=== PATIENT | female | born 1985 | race Caucasian/White ===

== ENCOUNTER 2021-07-14 22:25 | Emergency (ER) | payer BC, OTHER ==
[~2021-07-14] VITALS: Ht 165 cm; Wt 59.0 kg
[~2021-07-14 22:25] MED LIST: ACHD5005 PO; CEPH500C PO; CITA40TA19 PO; FAMO20TA5 PO; INSU100C SQ; INSU100V16 SC; INSU100V6 SQ; NPH,100I3 SQ; OMEP-10 PO; TPR25T PO; [UNRECOGNIZED DRUG - CODE] GT; [UNRECOGNIZED DRUG - OTHER] IV
[2021-07-14] MEDS ORDERED: NS IV 1000 ML 1,000 ML IV STA (22:44)
[2021-07-14] MEDS ORDERED: LORazepam INJ 2 MG/ML (ATIVAN) VIAL IVP STA (22:44)
[2021-07-14 22:48] LABS: BASOPHILS # (AUTO) 0.1 10^3/uL (0.0-0.1); BASOPHILS % (AUTO) 1 % (0-10); EOSINOPHILS # (AUTO) 0.2 10^3/uL (0.0-0.3); EOSINOPHILS % (AUTO) 3 % (0-10); HEMATOCRIT 46 % (35-52); HEMOGLOBIN 16.1 g/dL (11.5-16.0); LYMPHOCYTES # (AUTO) 2.4 X 10^3 (1.0-4.0); LYMPHOCYTES % (AUTO) 30 % (12-44); MEAN CORPUSCULAR HEMOGLOBIN 32 pg (25-34); MEAN CORPUSCULAR HGB CONC 35 g/dL (32-36); MEAN CORPUSCULAR VOLUME 91 fL (80-99); MEAN PLATELET VOLUME 9.6 fL (9.0-12.2); MONOCYTES # (AUTO) 0.5 X 10^3 (0.0-1.0); MONOCYTES % (AUTO) 6 % (0-12); NEUTROPHILS % (AUTO) 61 % (42-75); PLATELET COUNT 387 10^3/uL (130-400); WHITE BLOOD COUNT 8.2 10^3/uL (4.3-11.0)
[2021-07-14 22:53] LABS: INR 1.1 (0.8-1.4); PROTHROMBIN TIME PATIENT 14.1 SEC (12.2-14.7)
--- NOTE | 2021-07-14 22:54 | ED General ---
General Chief Complaint: Chest Pain Stated Complaint: CHEST PAIN/HIGH BLOOD PRESSURE Source of Information: Patient History of Present Illness Date Seen by Provider: Jul 14, 2021 Time Seen by Provider: 22:25 Initial Comments 36 yo female presenting with complaint of leaving [facility] ED and coming here because she was "not feeling right". She states she has felt like she was having swelling in her legs since this afternoon. she also feels that she has chest tightness and discomfort going into her right arm. She feels that her fingernails and toenails were "turning colors" different than her fingers and toes. She follows with providers in [place], [place] and went to the ED at the [facility] but felt they were not taking her seriously so she left and came here to a stand alone Emergency Department with no records on her as she has not been here. She is vague about her symptoms and just keeps saying that she does not feel right. She denies fever, chills, pain with urination. She states her sugars are doing "really good" but when asked about Hgb A1c she states it was 11 or 12 when they checked it 3-4 months ago. When asked about getting a urinalysis she said she already checked for ketones and it was negative so she did not feel she needed that done. I told her that if she wanted evaluated here at the stand alone Emergency Department to see if anything was going on or if she needs to go to a Hospital somewhere she needs to start all over on the testing as we do not have any records on her. Timing/Duration: 12 Hours Associated Systoms: Chest Pain (tightness in upper chest radiating to right arm); No Cough, No Diaphoresis, No Fever/Chills, No Headaches; Malaise, Nausea/Vomiting (nausea but no emesis); No Rash, No Seizure, No Shortness of Air, No Syncope; Weakness (generalized) Allergies and Home Medications Allergies Coded Allergies: No Known Drug Allergies (Unverified , 07/14/21) Patient Home Medication List Home Medication List Reviewed: Yes Furosemide (Furosemide) 20 Mg Tablet, 20 MG PO DAILY Prescribed by: KERLINE SIMS on 07/15/21148 Potassium Chloride (Potassium Chloride) 20 Meq Tablet.er, 20 MEQ PO BID Prescribed by: KERLINE SIMS on 07/15/21148 Review of Systems Review of Systems Constitutional: see HPI; No diaphoresis EENTM: no symptoms reported Respiratory: see HPI Cardiovascular: see HPI Gastrointestinal: see HPI Genitourinary: No dysuria Musculoskeletal: other (pain in right arm and feels like legs are tight and swollen) Skin: see HPI, other (multiple scabs and sores on extremities as though she has been picking at her skin) Psychiatric/Neurological: Anxiety Hematologic/Lymphatic: Denies Blood Clots Past Idiesin-Ikgbpz-Lmouor Hx Patient Social History Tobacco Use?: Yes Tobacco type used: Cigarettes Smoking Status: Current Someday Smoker Substance use?: No Alcohol Use?: No Pt feels they are or have been: No Immunizations Up To Date Influenza Vaccine Up-to-Date: No; Not Current Past Medical History Surgery/Hospitalization HX: Insulin Dependent DM Poorly controlled, Anxiety, Depression Physical Exam Vital Signs Vital Signs - First Documented 07/14/21 22:43 Pulse 119 Resp 22 B/P (MAP) 155/101 (119) Pulse Ox 98 O2 Delivery Room Air Capillary Refill : Height, Weight, BMI Height: '" Weight: lbs. oz. kg; BMI Method: General Appearance: Anxious HEENT: PERRL/EOMI, Pharynx Normal Neck: Full Range of Motion, Normal Inspection, Non Tender, Supple Respiratory: Lungs Clear, Normal Breath Sounds, No Accessory Muscle Use, No Respiratory Distress, Other (hyperventilating) Cardiovascular: Normal Peripheral Pulses, Tachycardia Gastrointestinal: Normal Bowel Sounds, No Pulsatile Mass, Non Tender, Soft Rectal: Deferred Extremity: Normal Range of Motion, No Calf Tenderness, No Pedal Edema, Slow Capillary Refill Neurologic/Psychiatric: Alert, Oriented x3, decal transferrer II-XII Norm as Tested, Other (anxious) Skin: Warm/Dry Progress/Results/Core Measures Suspected Sepsis SIRS Temperature: Pulse: Respiratory Rate: Laboratory Tests 07/14/21 22:35: White Blood Count 8.2 Blood Pressure / Mean: Laboratory Tests 07/14/21 22:35: Creatinine 0.53L, INR Comment 1.1, Platelet Count 387, Total Bilirubin 0.6 Results/Orders Lab Results Laboratory Tests Test 07/14/21 22:35 07/14/21 22:45 07/14/21 23:11 07/14/21 23:30 Range/Units White Blood Count 8.2 4.3-11.0 10^3/uL Red Blood Count 5.09 3.80-5.11 10^6/uL Hemoglobin 16.1 H 11.5-16.0 g/dL Hematocrit 46 35-52 % Mean Corpuscular Volume 91 80-99 fL Mean Corpuscular Hemoglobin 32 25-34 pg Mean Corpuscular Hemoglobin Concent 35 32-36 g/dL Red Cell Distribution Width 12.8 10.0-14.5 % Platelet Count 387 130-400 10^3/uL Mean Platelet Volume 9.6 9.0-12.2 fL Immature Granulocyte % (Auto) 0 % Neutrophils (%) (Auto) 61 42-75 % Lymphocytes (%) (Auto) 30 12-44 % Monocytes (%) (Auto) 6 0-12 % Eosinophils (%) (Auto) 3 0-10 % Basophils (%) (Auto) 1 0-10 % Neutrophils # (Auto) 5.0 1.8-7.8 X 10^3 Lymphocytes # (Auto) 2.4 1.0-4.0 X 10^3 Monocytes # (Auto) 0.5 0.0-1.0 X 10^3 Eosinophils # (Auto) 0.2 0.0-0.3 10^3/uL Basophils # (Auto) 0.1 0.0-0.1 10^3/uL Immature Granulocyte # (Auto) 0.0 0.0-0.1 10^3/uL Prothrombin Time 14.1 12.2-14.7 SEC INR Comment 1.1 0.8-1.4 Activated Partial Thromboplast Time 33 24-35 SEC D-Dimer 0.84 H 0.00-0.49 UG/ML Sodium Level 136 135-145 MMOL/L Potassium Level 3.5 L 3.6-5.0 MMOL/L Chloride Level 102 98-107 MMOL/L Carbon Dioxide Level 23 21-32 MMOL/L Anion Gap 11 5-14 MMOL/L Blood Urea Nitrogen 8 7-18 MG/DL Creatinine 0.53 L 0.60-1.30 MG/DL Estimat Glomerular Filtration Rate 124 BUN/Creatinine Ratio 15 Glucose Level 103 70-105 MG/DL Calcium Level 9.6 8.5-10.1 MG/DL Corrected Calcium 9.2 8.5-10.1 MG/DL Magnesium Level 2.0 1.6-2.4 MG/DL Total Bilirubin 0.6 0.1-1.0 MG/DL Aspartate Amino Transf (AST/SGOT) 119 H 5-34 U/L Alanine Aminotransferase (ALT/SGPT) 111 H 0-55 U/L Alkaline Phosphatase 235 H 40-136 U/L Myoglobin 46.3 10.0-92.0 NG/ML Troponin I < 0.30 <0.30 NG/ML Pro-B-Type Natriuretic Peptide 1667.0 H <75.0 PG/ML Total Protein 7.0 6.4-8.2 GM/DL Albumin 4.5 3.2-4.5 GM/DL Lipase 11 8-78 U/L Serum Test, Qualitative NEGATIVE NEGATIVE Serum Alcohol < 10 <10 MG/DL Urine Color YELLOW Urine Clarity CLEAR Urine pH 8.0 5-9 Urine Specific [place] 1.010 L 1.016-1.022 Urine Protein NEGATIVE NEGATIVE Urine Glucose (UA) NEGATIVE NEGATIVE Urine Ketones NEGATIVE NEGATIVE Urine Nitrite NEGATIVE NEGATIVE Urine Bilirubin NEGATIVE NEGATIVE Urine Urobilinogen 1.0 < = 1.0 MG/DL Urine Leukocyte Esterase NEGATIVE NEGATIVE Urine RBC (Auto) NEGATIVE NEGATIVE Urine RBC 0-2 /HPF Urine WBC NONE /HPF Urine Squamous Epithelial Cells NONE /HPF Urine Crystals NONE /LPF Urine Bacteria TRACE /HPF Urine Casts NONE /LPF Urine Mucus LARGE H /LPF Urine Culture Indicated NO Urine Opiates Screen NEGATIVE NEGATIVE Urine Oxycodone Screen NEGATIVE NEGATIVE Urine Methadone Screen NEGATIVE NEGATIVE Urine Propoxyphene Screen NEGATIVE NEGATIVE Urine Barbiturates Screen NEGATIVE NEGATIVE Ur Tricyclic Antidepressants Screen NEGATIVE NEGATIVE Urine Phencyclidine Screen NEGATIVE NEGATIVE Urine Amphetamines Screen POSITIVE H NEGATIVE Urine Methamphetamines Screen NEGATIVE NEGATIVE Urine Benzodiazepines Screen NEGATIVE NEGATIVE Urine Cocaine Screen NEGATIVE NEGATIVE Urine Cannabinoids Screen POSITIVE H NEGATIVE Glucometer 96 70-110 MG/DL Blood Gas Puncture Site RIGHT RADIAL Blood Gas Patient Temperature 36.6 Arterial Blood pH 7.41 7.37-7.43 Arterial Blood Partial Pressure CO2 39 35-45 MMHG Arterial Blood Partial Pressure O2 22 *L 79-93 MMHG Arterial Blood HCO3 25 23-27 MMOL/L Arterial Blood Total CO2 25.9 21.0-31.0 MMOL/L Arterial Blood Oxygen Saturation 38 L 94-100 % Arterial Blood Base Excess 0.1 -2.5-2.5 MMOL/L Titi Test POSITIVE Blood Gas Ventilator Setting NO Blood Gas Inspired Oxygen ROOM AIR My Orders Orders - KERLINE SIMS MD Cbc With Automated Diff (07/14/21 22:39) Magnesium (07/14/21 22:39) Chest 1 View Ap/Pa Only (07/14/21:39) Ekg Tracing (07/14/21 22:39) Comprehensive Metabolic Panel (07/14/21 22:39) Myoglobin Serum (07/14/21 22:39) Protime With Inr (07/14/21:39) Partial Thromboplastin Time (07/14/21:39) O2 (07/14/21:39) Monitor-Rhythm Ecg Trace Only (07/14/21 22:39) Ed Iv/Invasive Line Start (07/14/21:39) Lipase (07/14/21:) Troponin I Fs (07/14/21 22:39) Probnp Fs (07/14/21 22:39) Fibrin Degradation Products (07/14/21 22:39) Ua Culture If Indicated (07/14/21 22:39) Drug Screen Stat (Urine) (07/14/21 22:39) Alcohol (07/14/21 22:39) Accucheck Stat ONCE (07/14/21 22:39) Hcg,Qualitative Serum (07/14/21:39) Ns Iv 1000 Ml (Sodium Chloride 0.9%) (07/14/21 22:44) Lorazepam Injection (Ativan Injection) (07/14/21 22:44) Arterial Blood Gas (07/14/21 23:37) Ct Angio Chest W (07/15/21 00:19) Iohexol Injection (Omnipaque 350 Mg/Ml 1 (07/15/21 00:30) Received Contrast (Hold Metformin- Contr (07/15/21 00:30) Sodium Chloride Flush (Catheter Flush Sy (07/15/21 00:30) Ns (Ivpb) (Sodium Chloride 0.9% Ivpb Bag (07/15/21 00:30) Potassium Chloride (Tablet) (K Dur Table (07/15/21 02:07) Rx-Lorazepam (Rx-Ativan) (07/15/21 02:15) Medications Given in ED Current Medications Medications Dose Ordered Sig/Sabiha Route Start Time Stop Time Status Last Admin Dose Admin Iohexol 100 ml ONCE ONCE IV 07/15/21 00:30 07/15/21 00:32 DC 07/15/21 00:47 100 ML Sodium Chloride 10 ml NEEDED PRN IV 07/15/21 00:30 07/15/21 02:15 10 ML Sodium Chloride 100 ml ONCE ONCE IV 07/15/21 00:30 07/15/21 00:32 DC 07/15/21 00:47 100 ML Vital Signs/I&O 07/14/21 07/14/21 07/14/21 07/14/21 22:43 22:59 23:01 23:57 Pulse 119 113 108 Resp 22 20 B/P (MAP) 155/101 (119) 138/100 123/99 Pulse Ox 98 100 100 O2 Delivery Room Air Room Air Room Air 07/15/21 07/15/21 00:33 01:15 Pulse 117 108 B/P (MAP) 143/98 124/86 Capillary Refill : Progress Note #1: Progress Note Electrocardiogram shows sinus tachycardia with no acute ST elevation. Obtain labs and urinalysis. Add on urine drug screen to look for substances of abuse that might be contributing to her anxiety and bouncing between facilities when all of her care has been at [place]. Evaluate for DKA with her tachycardia and vague complaint of "not feeling right". Order IVF of 1 L NS for hydration, Ativan 1 mg IV for anxiety with her tachycardia and hyperventilating. CXR for her complaint of chest tightness although her oxygen saturation is 100% on RA. Differential diagnosis includes anxiety, DKA, substance abuse, peripheral neuropathy, pulmonary embolism, myocardial infarction, heart failure, electrolyte imbalance, renal failure, hepatic failure Progress Note #2: Progress Note Labs appear stable without elevation of WBC. count. UA not showing infection. UDS showing only THC and Amphetamines. Chemistry shows mild elevation of LFTs to 110s with normal T Bili. Troponin <0.3 after having symptoms since around 3 pm. proBNP elevated to 1677 but no old one for comparison. CXR shows findings for atypical infection or possible interstitial edema. No pleural effusion or cardiomegaly. D Dimer was slightly elevated to 0.89. Pt has improved blood pressure but does have continued tachycardia despite IVF 1 L NS bolus for hydration and Lorazepam 1 mg IV for anxiety. Will try to get records from [facility] for comparison. Add on CT angiogram of chest to check for PE or acute abnormality of chest to cause her chest tightness Progress Note #3: Progress Note Records from [facility] reviewed and showed findings consistent with CXR and CT scan [facility]. No BNP or Troponin at [facility]. Records from [facility] state she had work up in May for Chest pains and similar presentation that was reportedly negative but those records were not sent. CT angiogram from [facility] shows interstitial edema with trace small bilateral pleural effusions. No PE. small nonspecific groundglass nodule in RUL 6 to 7 mm. Will reassure pt that she does not have signs of heart attack, pneumonia, kidney or liver failure. For the interstitial edema on Chest xray and CT scan will encourage follow up with pcp/cardiology for echocardiogram. For her complaint of cramping and leg pain have her follow up for perfusion or vascular scans to see how well she is perfusing her legs since a combination of peripheral vascular disease with her diabetic neuropathy could certainly cause her to have some leg pains. She does not have evidence of ischemic tissue for a completely blocked artery to her LE. Branch Director that pt could take diuretic with lasix to try and help with the mild edema in lungs and take potassium supplement with this to help prevent hypokalemia. Advised pt that Echocardiogram to check her heart function would be helpful but with her being hemodynamically stable she would not have to be admitted to the hospital to get this done emergently. She also would benefit from perfusion studies of her legs to see if she has need of vascular procedure or stenting to improve blood flow. Will start potassium supplement in case that is contributing to her leg pain and spasms. So she can rest when she gets home have her wait until morning to get Lasix started so she is not up rest of the morning having to pee. Send with Take home pack of Lorazepam 0.5 mg pills, 1 every 8 hours as needed for anxiety and stress. Encouraged to call Dr. Galindo Friday morning about arranging follow up and possible order for other testing. ECG Initial ECG Impression Date: Jul 14, 2021 Initial ECG Impression Time: 22:32 Initial ECG Rate: 113 Initial ECG Rhythm: S.Tach Initial ECG Comparisson: No Previous ECG Available Comment Sinus tachycardia with a heart rate of 113 bpm. NV interval 149 ms. Borderline prolonged QT interval of 359 ms with a QTc interval [address] elevation. No prior tracing available for comparison. Probable left ventricular hypertrophy. Diagnostic Imaging Diagonstic Imaging: Xray Plain Films/CT/US/NM/MRI: chest Comments NAME: AAMIR GONG [facility] REC#: [id number] PT STATUS: REG ER : 1985 PHYSICIAN: KERLINE SIMS MD ADMIT DATE: 07/14/21/ER FS Draft Date of Exam:07/14/21 CHEST 1 VIEW AP/PA ONLY INDICATION: Dyspnea Portable upright AP view of the chest is obtained. There is no previous study for comparison. There is mild generalized cardiomegaly with pulmonary venous congestion. Prominent interstitial markings are seen throughout the lungs. There is no pneumothorax, consolidation or significant pleural fluid. IMPRESSION: Diffuse interstitial markings may reflect interstitial pulmonary edema. Interstitial pneumonitis could have this appearance as well. Clinical correlation is recommended. If older studies are available, comparison would be of use. Dictated on workstation # [id number] Dict: 07/14/21 2324 Trans: 07/14/21 2328 [facility] [id number] Interpreted by: LATANYA ADAMS MD Electronically signed by: Reviewed: Reviewed by Me Diagonstic Imaging: CT (angiogram) Plain Films/CT/US/NM/MRI: chest Comments Findings suspicious for interstitial edema with trace small bilateral pleural effusions. No pulmonary emboli. Small nonspecific groundglass nodule in the right upper lobe measuring 6 to 7 mm. Read by radiologist Dr. Travon Garcia MD at 0059 and faxed at 0101 Reviewed: Reviewed [facility] Study, Reviewed by Me Departure Impression Primary Impression: Tightness in chest Additional Impressions: Interstitial edema Qualified Codes: R60.9 - Edema, unspecified Leg pain, left Leg pain, right Disposition: 01 HOME, SELF-CARE Condition: Stable Departure-Patient Inst. Decision time for Depature: 01:40 Referrals: NO,LOCAL PHYSICIAN (PCP/Family) Primary Care Physician Patient Instructions: Chest Pain, Adult ED, Dependent Edema (DC) Add. Discharge Instructions: The tests tonight were not showing signs of a heart attack, pneumonia, blood clots in your lungs or your kidneys or liver shutting down. You could follow up with clinic about your edema in the lungs and they would need to do an Echocardiogram (Ultrasound of your heart) You could also have the clinic see about ordering tests to look at your perfusion (how well you are getting blood flow to your legs) and see if that is part of your pain in your legs along with your chronic Neuropathy from your Diabetes. The water pill and potassium pill could help with tightness in chest from small amount of fluid showing up in your lungs. This should also help with your blood pressure and if the leg pain is from your potassium then taking the extra potassium pills will help with the leg pain too. All discharge instructions reviewed with patient and/or family. Voiced understanding. Scripts Potassium Chloride (Potassium Chloride) 20 Meq Tablet.er 20 MEQ PO BID for Low Potassium for 5 Days, #10 TAB 0 Refills Prov: KERLINE SIMS MD 07/15/21 Furosemide (Furosemide) 20 Mg Tablet 20 MG PO DAILY for interstitial edema for 5 Days, #5 TAB 0 Refills Prov: KERLINE SIMS MD 07/15/21 KERLINE SIMS MD Jul 14, 2021 22:54
[2021-07-14 23:00] LABS: BILIRUBIN,URINE NEGATIVE (NEGATIVE); CLARITY,URINE CLEAR; COLOR,URINE YELLOW; GLUCOSE, URINE (UA) NEGATIVE (NEGATIVE); KETONES,URINE NEGATIVE (NEGATIVE); LEUKOCYTE ESTERASE ,URINE NEGATIVE (NEGATIVE); NITRITE,URINE NEGATIVE (NEGATIVE); PROTEIN,URINE NEGATIVE (NEGATIVE)
[2021-07-14 23:08] LABS: ALANINE AMINOTRANSFERASE 111 U/L (0-55); ALBUMIN 4.5 GM/DL (3.2-4.5); ALKALINE PHOSPHATASE 235 U/L (40-136); BILIRUBIN,TOTAL 0.6 MG/DL (0.1-1.0); BUN/CREATININE RATIO 15; CALCIUM 9.6 MG/DL (8.5-10.1); CARBON DIOXIDE 23 MMOL/L (21-32); CHLORIDE 102 MMOL/L (98-107); CREATININE SERUM 0.53 MG/DL (0.60-1.30); GFR ESTIMATED 124; GLUCOSE 103 MG/DL (70-105); POTASSIUM 3.5 MMOL/L (3.6-5.0); SODIUM 136 MMOL/L (135-145)
[2021-07-14 23:09] LABS: LIPASE 11 U/L (8-78)
[2021-07-14 23:11] LABS: BACTERIA,URINE TRACE /HPF; RBC,URINE 0-2 /HPF
[2021-07-14 23:29] LABS: AMPHETAMINE SCREEN, URINE POSITIVE (NEGATIVE); BARBITURATE SCREEN URINE NEGATIVE (NEGATIVE); BENZODIAZEPINES SCREEN URINE NEGATIVE (NEGATIVE); CANNABINOID SCREEN, URINE POSITIVE (NEGATIVE); COCAINE SCREEN URINE NEGATIVE (NEGATIVE); METHADONE STAT NEGATIVE (NEGATIVE); METHAMPHETAMINE SCREEN URINE S NEGATIVE (NEGATIVE); OPIATE SCREEN URINE NEGATIVE (NEGATIVE); OXYCODONE STAT NEGATIVE (NEGATIVE); PROPOXYPHENE STAT NEGATIVE (NEGATIVE); TRICYCLIC ANTIDEPRESSANTS SCRE NEGATIVE (NEGATIVE)
--- NOTE | 2021-07-14 23:29 | Diagnostic Imaging Report ---
INDICATION: Dyspnea Portable upright AP view of the chest is obtained. There is no previous study for comparison. There is mild generalized cardiomegaly with pulmonary venous congestion. Prominent interstitial markings are seen throughout the lungs. There is no pneumothorax, consolidation or significant pleural fluid. IMPRESSION: Diffuse interstitial markings may reflect interstitial pulmonary edema. Interstitial pneumonitis could have this appearance as well. Clinical correlation is recommended. If older studies are available, comparison would be of use. Dictated by: Dictated on workstation # [id number]
[2021-07-14 23:40] LABS: ABG BASE EXCESS 0.1 MMOL/L (-2.5-2.5); ABG OXYGEN SATURATION 38 % (94-100); ABG PCO2 39 MMHG (35-45); ABG PH 7.41 (7.37-7.43); ABG TCO2 25.9 MMOL/L (21.0-31.0); ALLENS TEST POSITIVE; INSPIRED O2 ROOM AIR; VENTILATOR NO
[2021-07-14 23:41] LABS: PATIENT TEMP 36.6
[2021-07-14 23:42] LABS: ABG PO2 22 MMHG (79-93)
[2021-07-15 00:29] LABS: FIBRIN DEGRADATION PRODUCTS 0.84 UG/ML (0.00-0.49)
[2021-07-15] MEDS ORDERED: IOHEXOL 350 MG/ML 100 ML (OMNIPAQUE 350) VIAL IV ONE (00:30)
[2021-07-15] MEDS ORDERED: NS 100 ML (IVPB) BAG IV ONE (00:30)
[2021-07-15] MEDS ORDERED: HOLD METFORMIN - RECEIVED CONTRAST 20 ML VIAL IV SCH (00:30)
[2021-07-15] MEDS: CATHETER FLUSH 10 ML SYR IV PRN ×2 (00:47→02:15)
[2021-07-15] MEDS ORDERED: FURO20TA4 PO (01:49)
[2021-07-15] MEDS ORDERED: POTA-51 PO (01:49)
[2021-07-15 02:07] VITALS: BP 134/98
[2021-07-15] MEDS ORDERED: KCL 20 MEQ TAB (K-DUR) PO STA (02:07)
[2021-07-15] MEDS ORDERED: RX-LORAZEPAM (ATIVAN) 0.5 MG TAB PPK#4 PO PRN (02:15)
--- NOTE | 2021-07-15 06:14 | Diagnostic Imaging Report ---
PROCEDURE: CT angiography of the chest with contrast. TECHNIQUE: Multiple contiguous axial images were obtained through the chest after uneventful bolus administration of intravenous contrast. 3D reconstructed CTA MIP acquisitions were also performed. Auto Exposure Controls were utilized during the CT exam to meet ALARA standards for radiation dose reduction. Indication: Chest tightness and dyspnea. Comparison: Chest x-ray 07/14/2021. Discussion: No pulmonary embolus identified. The thoracic aorta is normal in caliber and configuration. Normal heart size. No pericardial fluid. There are small bilateral pleural effusions present. There is mild interstitial thickening diffusely with some groundglass infiltrates. The findings favor the appearance of mild edema. No focal consolidation. The upper abdomen is unremarkable. No osseous abnormality identified. Shotty-appearing mediastinal adenopathy. Impression: 1. Small bilateral pleural effusions with bilateral mixed interstitial and alveolar infiltrates suggesting mild failure. 2. No pulmonary embolus identified. 3. Agree with preliminary report. Dictated by: Dictated on workstation # [id number]
== END 2021-07-15 02:07 | disposition home or self-care (01) ==
LOC: ER FS 22:30
DX: R07.89 Other chest pain (principal); R60.9 Edema, unspecified; M79.605 Pain in left leg; M79.604 Pain in right leg; F17.210 Nicotine dependence, cigarettes, uncomplicated
CPT/HCPCS: 36415; 71045; 71275; 80053; 80306; 81000; 82805; 82947; 83690; 83735; 83874; 83880; 84484; 84703; 85025; 85379; 85610; 85730; 93005; 93041; 99285; G0480; 80320; Q9967

== ENCOUNTER 2022-02-12 08:32 | Observation (INO) | payer BC ==
[~2022-02-12] VITALS: Ht 165.1 cm; Wt 68.5 kg
[~2022-02-12 08:32] MED LIST changes: +FURO20TA4 PO; +POTA-51 PO
[2022-02-12 08:58] LABS: HEMOGLOBIN 15.6 g/dL (11.5-16.0); LYMPHOCYTES # (AUTO) 0.7 10^3/uL (1.0-4.0); LYMPHOCYTES % (AUTO) 4 % (12-44); MEAN CORPUSCULAR HEMOGLOBIN 31 pg (25-34); MONOCYTES # (AUTO) 0.8 10^3/uL (0.0-1.0); MONOCYTES % (AUTO) 4 % (0-12)
[2022-02-12 08:59] LABS: BASOPHILS # (AUTO) 0.1 10^3/uL (0.0-0.1); BASOPHILS % (AUTO) 0 % (0-10); EOSINOPHILS % (AUTO) 0 % (0-10); HEMATOCRIT 46 % (35-52); MEAN CORPUSCULAR HGB CONC 34 g/dL (32-36); MEAN CORPUSCULAR VOLUME 92 fL (80-99); MEAN PLATELET VOLUME 10.1 fL (9.0-12.2); NEUTROPHILS # (AUTO) 17.4 10^3/uL (1.8-7.8); NEUTROPHILS % (AUTO) 91 % (42-75); PLATELET COUNT 379 10^3/uL (130-400); WHITE BLOOD COUNT 19.2 10^3/uL (4.3-11.0)
[2022-02-12] MEDS ORDERED: NS IV 1000 ML 1,000 ML IV SCH ×3 (09:00→13:45)
[2022-02-12] MEDS ORDERED: ONDANSETRON 4 MG/2 ML (SDV) Z0FRAN IVP ONE (09:00)
[2022-02-12 09:15] LABS: BAND NEUTROPHILS 4 %; BASOPHILS % (MANUAL) 0 %; EOSINOPHILS % (MANUAL) 1 %; LYMPHOCYTES % (MANUAL) 6 %; MONOCYTES % (MANUAL) 4 %; NEUTROPHILS % (MANUAL) 85 %; RBC MORPH NORMAL
[2022-02-12 09:16] LABS: CHLORIDE 92 MMOL/L (98-107); POTASSIUM 3.9 MMOL/L (3.6-5.0); SODIUM 135 MMOL/L (135-145)
[2022-02-12 09:17] LABS: CALCIUM 10.5 MG/DL (8.5-10.1)
[2022-02-12 09:18] LABS: TOTAL PROTEIN 8.9 GM/DL (6.4-8.2)
[2022-02-12 09:19] LABS: CARBON DIOXIDE 16 MMOL/L (21-32)
[2022-02-12 09:20] LABS: BILIRUBIN,TOTAL 1.1 MG/DL (0.1-1.0)
[2022-02-12 09:21] LABS: ALKALINE PHOSPHATASE 104 U/L (40-136)
[2022-02-12 09:22] LABS: CREATININE SERUM 1.71 MG/DL (0.60-1.30); GFR ESTIMATED 40
[2022-02-12 09:23] LABS: BUN/CREATININE RATIO 18
[2022-02-12 09:24] LABS: ALANINE AMINOTRANSFERASE 26 U/L (0-55)
[2022-02-12 09:32] LABS: GLUCOSE 774 MG/DL (70-105)
[2022-02-12] MEDS ORDERED: inSUlin (REGULAR) HUMAN 1 UNIT/0.01 ML (CHARGE PER UNIT) IV ONE (09:45)
[2022-02-12 10:39] LABS: BILIRUBIN,URINE NEGATIVE (NEGATIVE); CLARITY,URINE CLEAR; COLOR,URINE YELLOW; GLUCOSE, URINE (UA) 3+ (NEGATIVE); KETONES,URINE 3+ (NEGATIVE); LEUKOCYTE ESTERASE ,URINE NEGATIVE (NEGATIVE); NITRITE,URINE NEGATIVE (NEGATIVE); PROTEIN,URINE NEGATIVE (NEGATIVE)
[2022-02-12 10:58] LABS: BACTERIA,URINE NEGATIVE /HPF
--- NOTE | 2022-02-12 12:29 | ED General ---
General Chief Complaint: Glucose Problems Stated Complaint: HIGH BLOOD SUGAR/VOMITING Nursing Triage Note: PT TO RM 9 PER W/C PT STATES HAS BS OVER 800 HAS BEEN VOMITING SINCE LAST PM. STATES BS OVER 800 THIS AM. PT STATES WAS SICK W COVID IN JAN. PT STATES HAS INSULIN PUMP IN PLACE THAT GIVES PT 1U Q HR. STATES THAT HE HAD GIVEN HER 15U INSULIN AT 0700 THIS AM SQ IN ARM. Source of Information: Patient Exam Limitations: No Limitations History of Present Illness Date Seen by Provider: Feb 12, 2022 Time Seen by Provider: 08:58 Initial Comments This 36-year-old woman with type 1 diabetes since age 8 presents to the emergency room with hyperglycemia, vomiting, and generalized ill feeling. She has been using an insulin pump for about the past 2 weeks. Prior to the insulin pump, she was frequently experiencing high blood sugars up to the 500s. Over the last week she has actually been fairly well controlled with most blood sugars being under 200 and having a few low blood sugars in the 60s over the past week. She noticed a problem with the nausea and high blood sugars after changing her insulin pump site yesterday. Her gave her a bolus of 15 units subcu by injection rather than using her pump this morning before coming to the emergency room. She still has her pump on running at a basal rate of 1 unit/h. She sees an endocrinology team at [facility]. PRIMITIVO Gutierrez is who she claims as her primary provider for endocrinology. She also sees Dr. Brett Alva in the cardiology clinic at [facility]. She reports having an idiopathic heart failure. Her reports her last ejection fraction a couple months ago was in the 40s. Her ejection fractions had been significantly lower prior to that. Patient also had COVID-19 in late December of this year and seemed to recover well. She does not have a local primary care provider. Accu-Chek is too high to read during initial assessment. She does take diuretics for her heart failure. Allergies and Home Medications Allergies Coded Allergies: gabapentin (Verified Allergy, Unknown, Hives, 02/12/22) morphine (Unverified Adverse Reaction, Mild, NIGHTMARES, 07/16/21) Patient Home Medication List Home Medication List Reviewed: Yes ALPRAZolam (ALPRAZolam) 0.25 Mg Tablet, 0.125 MG PO DAILY PRN for ANXIETY, (Reported) Entered as Reported by: PAULO DOVE on 02/12/221543 Last Action: Reviewed Atorvastatin Calcium (Atorvastatin Calcium) 40 Mg Tablet, 40 MG PO 1800, (Repor valarie) Entered as Reported by: PAULO DOVE on 02/12/221543 Last Action: Reviewed Bumetanide (Bumetanide) 2 Mg Tablet, 2 MG PO 1800, (Reported) Entered as Reported by: PAULO DOVE on 02/12/221543 Last Action: Reviewed Cetirizine HCl (Cetirizine HCl) 10 Mg Tablet, 10 MG PO DAILY PRN for ALLERGY SYMPTOMS, (Reported) Entered as Reported by: PAULO DOVE on 02/12/221543 Last Action: Reviewed Ibuprofen (Ibuprofen) 200 Mg Tablet, 600 MG PO Q8H PRN for PAIN-MILD (1-4), (Reported) Entered as Reported by: PAULO DOVE on 02/12/221543 Last Action: Reviewed Insulin Lispro (Insulin Lispro) 100 Unit/Ml Vial, UNITS SC UD, (Reported) Entered as Reported by: PAULO DOVE on 02/12/221543 Last Action: Reviewed Metoprolol Succinate (Metoprolol Succinate) 25 Mg Tab.er.24h, 12.5 MG PO 1800, (Reported) Entered as Reported by: PAULO DOVE on 02/12/221543 Last Action: Reviewed Pregabalin (Pregabalin) 50 Mg Capsule, 50 MG PO TID, (Reported) Entered as Reported by: PAULO DOVE on 02/12/221543 Last Action: Reviewed Spironolactone (Spironolactone) 25 Mg Tablet, 25 MG PO 1800, (Reported) Entered as Reported by: PAULO DOVE on 02/12/221543 Last Action: Reviewed Discontinued Medications Cephalexin Monohydrate (Cephalexin) 500 Mg Capsule, 1 TAB PO BID, (Reported) Discontinued Reason: No Longer Taking Entered as Reported by: LEO NEELY on 11/16/12 0806 Last Action: Discontinued Furosemide (Furosemide) 20 Mg Tablet, 20 MG PO DAILY Discontinued Reason: No Longer Taking Prescribed by: KERLINE SIMS on 07/15/21 0149 Last Action: Discontinued Hydrocodone Bit/Acetaminophen (Lorcet 5/325 Mg) 1 Tab Tablet, 1-2 TAB PO q 4-6 hrs PRN Discontinued Reason: No Longer Taking Prescribed by: SUSSY FUNK on 11/17/12 1041 Last Action: Discontinued Insulin Aspart (Novolog (Per Unit)) 1 Unit/0.01 Ml [place], UNIT SC AC, (Reported) Discontinued Reason: No Longer Taking Entered as Reported by: LEO RAYA on 10/05/12 0801 Last Action: Discontinued Nph, Human Insulin Isophane (Novolin [place]) 300 Unit/3 Ml Insuln.pen, 19 UNIT SQ ONCE, (Reported) Discontinued Reason: No Longer Taking Entered as Reported by: LEO RAYA on 10/05/12 08 Last Action: Discontinued Nph, Human Insulin Isophane (Novolin N [place]) 300 Unit/3 Ml Insuln.pen, 22 UNIT SQ HS, (Reported) Discontinued Reason: No Longer Taking Entered as Reported by: LEO RAYA on 10/05/12 08 Last Action: Discontinued Omeprazole (Prilosec 20 Mg) 20 Mg Capsule.dr, 20 MG PO DAILY Discontinued Reason: No Longer Taking Prescribed by: SUSSY FUNK on 10/05/12 1115 Last Action: Discontinued Potassium Chloride (Potassium Chloride) 20 Meq Tablet.er, 20 MEQ PO BID Discontinued Reason: No Longer Taking Prescribed by: KERLINE SIMS on 07/15/21 0149 Last Action: Discontinued Sodium Chloride (Ns Iv 1000 Ml) 1,000 Ml Soln, 1,000 ML IV ONCE, (Reported) Discontinued Reason: No Longer Taking Entered as Reported by: LEO RAYA on 11/17/12 0847 Last Action: Discontinued Review of Systems Review of Systems Constitutional: see HPI EENTM: no symptoms reported Respiratory: short of breath (Chronic) Cardiovascular: no symptoms reported Gastrointestinal: see HPI Genitourinary: frequency : No Musculoskeletal: no symptoms reported Skin: no symptoms reported Psychiatric/Neurological: No Symptoms Reported Hematologic/Lymphatic: No Symptoms Reported Past Higakml-Jahbtb-Njwezh Hx Patient Social History Tobacco Use?: Yes Tobacco type used: Cigarettes Smoking Status: Current Someday Smoker Substance use?: Yes Substance type: Marijuana Substance frequency: Couple times a week Alcohol Use?: No Pt feels they are or have been: No Past Medical History Surgery/Hospitalization HX: Insulin Dependent DM Poorly controlled, Anxiety, Depression Surgeries: Yes Respiratory: No Cardiac: Yes (History of idiopathic heart failure) Neurological: No : No Reproductive Disorders: No Genitourinary: No Gastrointestinal: No Endocrine: Yes Diabetes, Insulin dep (Type 1 diabetes since age 8, uses pump) HEENT: No Cancer: No Psychosocial: Yes Anxiety, Depression Integumentary: No Physical Exam Vital Signs Vital Signs - First Documented 02/12/22 08:35 Temp 36.9 Pulse 117 Resp 18 B/P (MAP) 126/74 (91) Pulse Ox 100 Capillary Refill : Less Than 3 Seconds Height, Weight, BMI Height: '" Weight: lbs. oz. kg; 21.00 BMI Method:Stated General Appearance: WD/WN, Mild Distress, Other (Ill-appearing) HEENT: PERRL/EOMI, Normal ENT Inspection, Other (Oropharynx very dry) Neck: Normal Inspection Respiratory: Lungs Clear, Normal Breath Sounds Cardiovascular: No Edema, No Murmur, Tachycardia Gastrointestinal: Normal Bowel Sounds, Non Tender, Soft; No Distended Extremity: Normal Inspection, No Pedal Edema Neurologic/Psychiatric: Alert, Oriented x3, No Motor/Sensory Deficits, Normal Mood/Affect, gate mortiser operator II-XII Norm as Tested Skin: Normal Color, Warm/Dry Progress/Results/Core Measures Suspected Sepsis SIRS Temperature: Pulse: 117 Respiratory Rate: 18 Laboratory Tests 02/12/22 08:51: White Blood Count 19.2H Blood Pressure 126 /74 Mean: 91 Laboratory Tests 02/12/22 08:51: Creatinine 1.71H, Platelet Count 379, Total Bilirubin 1.1H Results/Orders Lab Results Laboratory Tests Test 02/12/22 08:48 02/12/22 08:51 02/12/22 10:23 02/12/22 10:27 Range/Units Glucometer > 600 *H 432 *H 70-110 MG/DL White Blood Count 19.2 H 4.3-11.0 10^3/uL Red Blood Count 4.97 3.80-5.11 10^6/uL Hemoglobin 15.6 11.5-16.0 g/dL Hematocrit 46 35-52 % Mean Corpuscular Volume 92 80-99 fL Mean Corpuscular Hemoglobin 31 25-34 pg Mean Corpuscular Hemoglobin Concent 34 32-36 g/dL Red Cell Distribution Width 12.6 10.0-14.5 % Platelet Count 379 130-400 10^3/uL Mean Platelet Volume 10.1 9.0-12.2 fL Immature Granulocyte % (Auto) 1 % Neutrophils (%) (Auto) 91 H 42-75 % Lymphocytes (%) (Auto) 4 L 12-44 % Monocytes (%) (Auto) 4 0-12 % Eosinophils (%) (Auto) 0 0-10 % Basophils (%) (Auto) 0 0-10 % Neutrophils # (Auto) 17.4 H 1.8-7.8 10^3/uL Lymphocytes # (Auto) 0.7 L 1.0-4.0 10^3/uL Monocytes # (Auto) 0.8 0.0-1.0 10^3/uL Eosinophils # (Auto) 0.0 0.0-0.3 10^3/uL Basophils # (Auto) 0.1 0.0-0.1 10^3/uL Immature Granulocyte # (Auto) 0.1 0.0-0.1 10^3/uL Neutrophils % (Manual) 85 % Lymphocytes % (Manual) 6 % Monocytes % (Manual) 4 % Eosinophils % (Manual) 1 % Basophils % (Manual) 0 % Band Neutrophils 4 % Blood Morphology Comment NORMAL Sodium Level 135 135-145 MMOL/L Potassium Level 3.9 3.6-5.0 MMOL/L Chloride Level 92 L 98-107 MMOL/L Carbon Dioxide Level 16 L 21-32 MMOL/L Anion Gap 27 H 5-14 MMOL/L Blood Urea Nitrogen 31 H 7-18 MG/DL Creatinine 1.71 H 0.60-1.30 MG/DL Estimat Glomerular Filtration Rate 40 BUN/Creatinine Ratio 18 Glucose Level 774 *H 70-105 MG/DL Calcium Level 10.5 H 8.5-10.1 MG/DL Corrected Calcium 8.5-10.1 MG/DL Total Bilirubin 1.1 H 0.1-1.0 MG/DL Aspartate Amino Transf (AST/SGOT) 24 5-34 U/L Alanine Aminotransferase (ALT/SGPT) 26 0-55 U/L Alkaline Phosphatase 104 40-136 U/L B-Type Natriuretic Peptide < 10.0 <100.0 PG/ML Total Protein 8.9 H 6.4-8.2 GM/DL Albumin 5.0 H 3.2-4.5 GM/DL Serum Test, Qualitative NEGATIVE NEGATIVE Urine Color YELLOW Urine Clarity CLEAR Urine pH 5.0 5-9 Urine Specific [place] <=1.005 1.016-1.022 Urine Protein NEGATIVE NEGATIVE Urine Glucose (UA) 3+ H NEGATIVE Urine Ketones 3+ H NEGATIVE Urine Nitrite NEGATIVE NEGATIVE Urine Bilirubin NEGATIVE NEGATIVE Urine Urobilinogen 0.2 < = 1.0 MG/DL Urine Leukocyte Esterase NEGATIVE NEGATIVE Urine RBC (Auto) NEGATIVE NEGATIVE Urine RBC NONE /HPF Urine WBC NONE /HPF Urine Squamous Epithelial Cells NONE /HPF Urine Crystals NONE /LPF Urine Bacteria NEGATIVE /HPF Urine Casts NONE /LPF Urine Mucus NEGATIVE /LPF Urine Culture Indicated NO Test 02/12/22 11:19 Range/Units Glucometer 418 *H 70-110 MG/DL My Orders Orders - HERMILA OLMOS MD Cbc With Automated Diff (02/12/22 08:49) Comprehensive Metabolic Panel (02/12/22 08:49) Hcg,Qualitative Serum (02/12/22 08:49) Ua Culture If Indicated (02/12/22 08:49) Ed Iv/Invasive Line Start (02/12/22 08:49) Ns Iv 1000 Ml (Sodium Chloride 0.9%) (02/12/22 09:00) Ondansetron Injection (Zofran Injectio (02/12/22 09:00) Bnp Kendra (02/12/22 09:11) Manual Differential (02/12/22 08:51) Insulin (Regular) Human (Novolin R (Per (02/12/22 09:45) Accucheck Stat ONCE (02/12/22 10:04) Accucheck Stat ONCE (02/12/22 10:04) Influenza A And B By Pcr (02/12/22 10:04) Ns Iv 1000 Ml (Sodium Chloride 0.9%) (02/12/22 10:15) Accucheck Stat ONCE (02/12/22 11:11) Ed Admission (Communication) (02/12/22 12:29) Medications Given in ED Current Medications Medications Dose Ordered Sig/Sabiha Route Start Time Stop Time Status Last Admin Dose Admin Insulin Human Regular 5 unit ONCE ONCE IV 02/12/22 09:45 02/12/22 09:46 DC 02/12/22 09:51 5 UNIT Ondansetron HCl 8 mg ONCE ONCE IVP 02/12/22 09:00 02/12/22 09:01 DC 02/12/22 09:00 8 MG Vital Signs/I&O 02/12/22 08:35 Temp 36.9 Pulse 117 Resp 18 B/P (MAP) 126/74 (91) Pulse Ox 100 Capillary Refill : Less Than 3 Seconds Blood Pressure Mean: 91 Point of Care Testing Finger Stick Blood Glucose: 423 Blood Glucose Action Taken: RN AND PHYSICIAN NOTIFIED Progress Note : Time: 12:45 Progress Note Patient received 2 L of IV normal saline in the emergency room and insulin 5 units IV. She had a robust response to this therapy and a drop in blood sugar to 432 and then 418. She is feeling significantly improved. She is able to tolerate some clear liquids with ice chips and sips of water. I spoke with her endocrinology PA at [facility], Jennifer Lyon. She is in agreement with admitting at [facility] for treatment of DKA. Based on timing of the pump site replacement yesterday and symptoms developing shortly after, her trigger for DKA is likely pump site failure. She has turned off her pump at this time and further insulin administration will be addressed by Dr. Mendiola as hospitalist attending physician. Labs suggested no evidence of heart failure. She tolerated the 2 L bolus well. She does not have any increased shortness of breath. BNP was normal. PRIMITIVO Gutierrez can be reached through her nurse during business hours at [phone]. The [facility] fourdrinier operator on-call can be contacted after hours through the transfer center. Departure Communication (Admissions) Time/Spoke to Admitting Phy: 12:28 Dr. Mendiola Impression Primary Impression: DKA (diabetic ketoacidosis) Qualified Codes: E10.10 - Type 1 diabetes mellitus with ketoacidosis without coma Additional Impression: Nausea & vomiting Qualified Codes: R11.2 - Nausea with vomiting, unspecified Disposition: ADMITTED INPATIENT Condition: Improved Admissions Decision to Admit Reason: Admit from ER (General) Decision to Admit/Date: Feb 12, 2022 Time/Decision to Admit Time: 12:28 Departure-Patient Inst. Referrals: NO,LOCAL PHYSICIAN (PCP/Family) Primary Care Physician HERMILA OLMOS MD Feb 12, 2022 12:29
--- NOTE | 2022-02-12 13:33 | Tele-ICU Progress Note ---
Subjective Date Seen by a Provider: Feb 12, 2022 Subjective/Events-last exam This virtual visit was conducted using real time audio/video. Thank you for asking us to see this patient for DKA Recent events: PMH: DM1, idiopathic CHF with EF improved to40s, Covid 12/2021, anx., dep. SH: smoking history: Y FH: Non-contributory ROS: as in HPI. PE: VSS. O2 sat 100% on RA. HEENT: No obvious masses, adenopathy or JVD. Chest: clear to auscultation. CV: RRR S1 S2 No murmur or added sounds. Abd: Non-tender. Bowel sounds Y. : Unremarkable. Heredia N. WILLOW ANALYST/psychiatric: Grossly intact. No obvious focal findings. Extremities: No edema. Capillary refill < 3 seconds. Skin: unremarkable. Results: Elevated BUN 31, Creat 1.71, BG 418, WCC 19.2. CXR: not done.. Available chart/ vitals / labs / images reviewed. Video assessment done using teleICU camera, rest of exam as per RN. A/P: Critical Care: critically ill patient. Cont. IVF, IV insulin, PRN Zofran Discussed with RN Madison and ER MD Dr. Batista. Asked RN to reach out to eICU if any questions or concerns later. Time spent with patient/coordination of care with other health professionals (mins): 26 Sepsis Event Evaluation Height, Weight, BMI Height: '" Weight: lbs. oz. kg; 21.00 BMI Method:Stated Exam Exam Patient acknowledged, consented, and participated in this virtual visit which wa s conducted using real time audio/video Vital Signs Date Time Temp Pulse Resp B/P (MAP) Pulse Ox O2 Delivery O2 Flow Rate FiO2 02/12/22 12:42 112 16 117/75 97 Room Air 02/12/22 08:35 36.9 117 18 126/74 (91) 100 Height & Weight Height: '" Weight: lbs. oz. kg; 21.00 BMI Method:Stated General Appearance: WD/WN, Mild Distress, Other (Ill-appearing) HEENT: PERRL/EOMI, Normal ENT Inspection, Other (Oropharynx very dry) Neck: Normal Inspection Respiratory: Lungs Clear, Normal Breath Sounds Cardiovascular: No Edema, No Murmur, Tachycardia Capillary Refill: Less Than 3 Seconds Extremity: Normal Inspection, No Pedal Edema Neurologic/Psychiatric: Alert, Oriented x3, No Motor/Sensory Deficits, Normal Mood/Affect, semiautomatic stitcher operator II-XII Norm as Tested Skin: Normal Color, Warm/Dry Results Lab Laboratory Tests 02/12/22 08:51 Assessment/Plan Assessment/Plan Se free text Critical Care: Critically Ill Patient PAUL BASILIO MD Feb 12, 2022 13:33
[2022-02-12] MEDS ORDERED: POTASSIUM CL 10MEQ/50ML IVPB 50 ML IV SCH (13:45)
[2022-02-12] MEDS: POTASSIUM CL 10MEQ/50ML IVPB 50 ML IV SCH ×5 (13:50→23:09)
[2022-02-12 14:33] LABS: POTASSIUM 3.7 MMOL/L (3.6-5.0)
[2022-02-12 14:34] LABS: CALCIUM 8.9 MG/DL (8.5-10.1)
[2022-02-12 14:38] LABS: CREATININE SERUM 0.96 MG/DL (0.60-1.30)
[2022-02-12] MEDS ORDERED: FLU QUADRIvalent (6 months+) 60 mcg/0.5 ml 2022-23 (Fluzone) IM ONE (15:30)
[2022-02-12] MEDS ORDERED: CETI10TA17 PO (15:44)
[2022-02-12] MEDS ORDERED: IBUP-2473 PO (15:44)
[2022-02-12] MEDS ORDERED: INSU100V39 SC (15:44)
[2022-02-12] MEDS ORDERED: SPIR25TA5 PO (15:44)
[2022-02-12] MEDS ORDERED: MTP25TSR PO (15:44)
[2022-02-12] MEDS ORDERED: PREG50CA65 PO (15:44)
[2022-02-12] MEDS ORDERED: BUME2TAB7 PO (15:44)
[2022-02-12] MEDS ORDERED: ALPR0.254 PO (15:44)
[2022-02-12] MEDS ORDERED: ATOR40TA70 PO (15:44)
[2022-02-12] MEDS: D5 1/2 NS 1000 ML IV SOLUTION 1,000 ML IV SCH ×2 (16:06→20:24)
[2022-02-12 17:47] LABS: POTASSIUM 3.4 MMOL/L (3.6-5.0)
[2022-02-12 17:48] LABS: CALCIUM 8.2 MG/DL (8.5-10.1)
[2022-02-12 17:52] LABS: CREATININE SERUM 0.8 MG/DL (0.60-1.30)
[2022-02-12] MEDS: 1/2 NS IV SOLUTION 1,000 ML IV SCH ×3 (18:40→21:43)
[2022-02-12 22:07] LABS: CALCIUM 8.2 MG/DL (8.5-10.1); CREATININE SERUM 0.81 MG/DL (0.60-1.30); POTASSIUM 3.5 MMOL/L (3.6-5.0)
[2022-02-12] MEDS ORDERED: NS IV 500 ML 500 ML IV PRN (22:15)
[2022-02-13] MEDS: POTASSIUM CL 10MEQ/50ML IVPB 50 ML IV SCH ×3 (00:08→04:22)
[2022-02-13] MEDS: D5 1/2 NS 1000 ML IV SOLUTION 1,000 ML IV SCH ×2 (00:09→04:22)
[2022-02-13] MEDS: 1/2 NS IV SOLUTION 1,000 ML IV SCH ×3 (01:45→10:54)
[2022-02-13 02:35] LABS: CREATININE SERUM 0.71 MG/DL (0.60-1.30); POTASSIUM 3.5 MMOL/L (3.6-5.0)
[2022-02-13 05:28] LABS: BASOPHILS % (AUTO) 0 % (0-10); EOSINOPHILS # (AUTO) 0.1 10^3/uL (0.0-0.3); EOSINOPHILS % (AUTO) 2 % (0-10); HEMATOCRIT 34 % (35-52); HEMOGLOBIN 11.4 g/dL (11.5-16.0); LYMPHOCYTES # (AUTO) 2.4 10^3/uL (1.0-4.0); LYMPHOCYTES % (AUTO) 26 % (12-44); MEAN CORPUSCULAR HEMOGLOBIN 31 pg (25-34); MEAN CORPUSCULAR HGB CONC 34 g/dL (32-36); MEAN CORPUSCULAR VOLUME 92 fL (80-99); MEAN PLATELET VOLUME 9.6 fL (9.0-12.2); MONOCYTES # (AUTO) 0.5 10^3/uL (0.0-1.0); MONOCYTES % (AUTO) 6 % (0-12); NEUTROPHILS # (AUTO) 5.9 10^3/uL (1.8-7.8); NEUTROPHILS % (AUTO) 66 % (42-75); PLATELET COUNT 258 10^3/uL (130-400); WHITE BLOOD COUNT 8.9 10^3/uL (4.3-11.0)
[2022-02-13 05:47] LABS: CALCIUM 8.1 MG/DL (8.5-10.1); CREATININE SERUM 0.69 MG/DL (0.60-1.30); MAGNESIUM 1.7 MG/DL (1.6-2.4); POTASSIUM 3.7 MMOL/L (3.6-5.0)
[2022-02-13] MEDS ORDERED: MAGNESIUM 1 GM/100 ML IVPB 100 ML IV SCH (06:00)
[2022-02-13] MEDS ORDERED: POTASSIUM CL 10MEQ/50ML IVPB 50 ML IV SCH (06:00)
[2022-02-13] MEDS ORDERED: KCL 20 MEQ TAB (K-DUR) PO SCH (06:00)
[2022-02-13] MEDS: MAGNESIUM 1 GM/100 ML IVPB 100 ML IV SCH ×2 (06:04→08:00)
[2022-02-13] MEDS ORDERED: POTASSIUM PHOSPHATE INJ 30 MM in NS (IVPB) 250 ML IV ONE (07:30)
--- NOTE | 2022-02-13 08:14 | Discharge Summary ---
Diagnosis/Chief Complaint Date of Admission Feb 12, 2022 at 12:33 Date of Discharge Primary Care No,Local Physician Discharge Summary Discharge Physical Exam Allergies: Coded Allergies: gabapentin (Verified Allergy, Unknown, Hives, 02/12/22) morphine (Unverified Adverse Reaction, Mild, NIGHTMARES, 07/16/21) Vitals & I&Os Vital Signs Date Time Temp Pulse Resp B/P (MAP) Pulse Ox O2 Delivery O2 Flow Rate FiO2 02/13/22 13:00 84 6 127/78 (94) 99 Room Air 02/13/22 11:56 36.8 General Appearance: No Apparent Distress, WD/WN Respiratory: Lungs Clear, No Respiratory Distress Cardiovascular: Regular Rate, Rhythm, No Murmur Neurologic/Psychiatric: Alert, Oriented x3 Hospital Course Patient was admitted to the hospital secondary to diabetic ketoacidosis. She had recently switched from basal bolus insulin to an insulin pump a couple of weeks ago. She did a site change the night before admission and following that had very high blood sugars. She had nausea and vomiting. On presentation to [facility] emergency room her blood sugar was 774 and she was in DKA. She was admitted to the ICU for an insulin drip and did very well. She was transitioned back to her insulin pump once her gap had closed and she was no longer acidotic. She did well and was able to be discharged home in stable improved condition to follow-up with her primary care doctor, her endocrinology team at , and her industrial automation specialist at . Labs (last 24 hrs) Laboratory Tests 02/12/22 15:03: Glucometer 253H 02/12/22 15:40: Glucometer 225H 02/12/22 17:02: Glucometer 234H 02/12/22 17:30: Sodium Level 136, Potassium Level 3.4L, Chloride Level 106, Carbon Dioxide Level 23, Anion Gap 7, Blood Urea Nitrogen 16, Creatinine 0.80, Estimat Glomerular Filtration Rate 98, BUN/Creatinine Ratio 20, Glucose Level 284H, Calcium Level 8.2L 02/12/22 18:14: Glucometer 247H 02/12/22 19:00: Glucometer 217H 02/12/22 20:04: Glucometer 221H 02/12/22 21:01: Glucometer 174H 02/12/22 21:45: Sodium Level 138, Potassium Level 3.5L, Chloride Level 106, Carbon Dioxide Level 21, Anion Gap 11, Blood Urea Nitrogen 14, Creatinine 0.81, Estimat Glomerular Filtration Rate 97, BUN/Creatinine Ratio 17, Glucose Level 162H, Calcium Level 8.2L 02/12/22 23:06: Glucometer 139H 02/13/22 00:17: Glucometer 111H 02/13/22 01:06: Glucometer 132H 02/13/22 01:55: Sodium Level 137, Potassium Level 3.5L, Chloride Level 108H, Carbon Dioxide Level 21, Anion Gap 8, Blood Urea Nitrogen 11, Creatinine 0.71, Estimat Glomerular Filtration Rate 114, BUN/Creatinine Ratio 15, Glucose Level 145H, Calcium Level 8.0L 02/13/22 02:33: Glucometer 140H 02/13/22 03:50: Glucometer 113H 02/13/22 04:29: Glucometer 133H 02/13/22 05:25: White Blood Count 8.9, Red Blood Count 3.67L, Hemoglobin 11.4#L, Hematocrit 34L, Mean Corpuscular Volume 92, Mean Corpuscular Hemoglobin 31, Mean Corpuscular Hemoglobin Concent 34, Red Cell Distribution Width 12.5, Platelet Count 258, Purvi n Platelet Volume 9.6, Immature Granulocyte % (Auto) 0, Neutrophils (%) (Auto) 66, Lymphocytes (%) (Auto) 26, Monocytes (%) (Auto) 6, Eosinophils (%) (Auto) 2, Basophils (%) (Auto) 0, Neutrophils # (Auto) 5.9, Lymphocytes # (Auto) 2.4, Monocytes # (Auto) 0.5, Eosinophils # (Auto) 0.1, Basophils # (Auto) 0.0, Immature Granulocyte # (Auto) 0.0, Sodium Level 138, Potassium Level 3.7, Chloride Level 109H, Carbon Dioxide Level 19L, Anion Gap 10, Blood Urea Nitrogen 9, Creatinine 0.69, Estimat Glomerular Filtration Rate 116, BUN/Creatinine Ratio 13, Glucose Level 149H, Calcium Level 8.1L, Phosphorus Level 2.0L, Magnesium Level 1.7 02/13/22 06:22: Glucometer 158H 02/13/22 07:19: Glucometer 182H 02/13/22 08:19: Glucometer 180H 10/5/22 09:24: Glucometer 187H 02/13/22 12:00: Sodium Level 138, Potassium Level 4.4, Chloride Level 111H, Carbon Dioxide Level 21, Anion Gap 6, Blood Urea Nitrogen 6L, Creatinine 0.64, Estimat Glomerular Filtration Rate 118, BUN/Creatinine Ratio 9, Glucose Level 163H, Calcium Level 8.3L, Beta-Hydroxybutyrate (Chem panel) 0.11 Microbiology 02/12/22 MRSA Screen - Final, Complete MRSA not isolated Patient resulted labs reviewed. Pending Labs Laboratory Tests 02/13/22 07:19: Glucometer 182 02/13/22 08:19: Glucometer 180 02/13/22 09:24: Glucometer 187 02/13/22 12:00: Sodium Level 138, Potassium Level 4.4, Chloride Level 111, Carbon Dioxide Level 21, Anion Gap 6, Blood Urea Nitrogen 6, Creatinine 0.64, Estimat Glomerular Filtration Rate 118, BUN/Creatinine Ratio 9, Glucose Level 163, Calcium Level 8.3, Beta-Hydroxybutyrate (Chem panel) 0.11 Discussion & Recommendations Discharge Planning: >30 minutes discharge planning Discharge Home Medications: Active Scripts Active Reported Cetirizine HCl 10 Mg Tablet 10 Mg PO DAILY PRN Ibuprofen 200 Mg Tablet 600 Mg PO Q8H PRN Insulin Lispro 100 Unit/Ml Vial Units SC UD USES PER PUMP Bumetanide 2 Mg Tablet 2 Mg PO 1800 Metoprolol Succinate 25 Mg Tab.er.24h 12.5 Mg PO 1800 TAKES OF A 25MG TAB Atorvastatin Calcium 40 Mg Tablet 40 Mg PO 1800 Spironolactone 25 Mg Tablet 25 Mg PO 1800 ALPRAZolam 0.25 Mg Tablet 0.125 Mg PO DAILY PRN TAKES OF A 0.25MG TAB Pregabalin 50 Mg Capsule 50 Mg PO TID Instructions to patient/family Please see electronic discharge instructions given to patient. VANESSA TURCIOS MD Feb 13, 2022 08:14
--- NOTE | 2022-02-13 10:00 | Discharge Inst-Simple/Standard ---
Discharge Inst-Standard Patient Instructions/Follow Up Plan of Care/Instructions/FU: Please continue to take your medications as written. Please follow up with your primary care doctor to follow up this hospital stay. Activity as Tolerated: Yes Discharge Diet: ADA Diet Return to The Hospital For: Chest pain, high blood sugars, nausea, vomiting, shortness of breath, fever, weakness, if you feel you are getting worse. VANESSA TURCIOS MD Feb 13, 2022 10:00 am
[2022-02-13 12:36] LABS: POTASSIUM 4.4 MMOL/L (3.6-5.0)
[2022-02-13 12:38] LABS: CALCIUM 8.3 MG/DL (8.5-10.1)
[2022-02-13 12:42] LABS: CREATININE SERUM 0.64 MG/DL (0.60-1.30)
[2022-02-13 13:24] VITALS: BP 127/78
== END 2022-02-13 13:13 | disposition home or self-care (01) ==
LOC: EDUNIT# 08:32 → ER 08:35 → ICU 12:33 → UNDOADMOB 12:33 → ICU 14:51 → UNDODISOB 02-13 13:13
PROVIDERS: ADMIT Family Medicine; ATTEND Family Medicine
DX: E10.10 Type 1 diabetes mellitus with ketoacidosis without coma (principal); F17.210 Nicotine dependence, cigarettes, uncomplicated; F12.20 Cannabis dependence, uncomplicated; N17.9 Acute kidney failure, unspecified; D72.829 Elevated white blood cell count, unspecified; I50.9 Heart failure, unspecified
CPT/HCPCS: 36415; 80048; 80053; 81000; 82010; 82947; 83036; 83735; 83880; 84100; 84703; 85007; 85025; 85027; 87081; 96361; 96366; 96374; 96375; 96376; G0378

== ENCOUNTER 2022-09-06 10:08 | Emergency (ER) | payer OTHER ==
[~2022-09-06] VITALS: Ht 165 cm; Wt 63.0 kg
[~2022-09-06 10:08] MED LIST changes: +ALPR0.254 PO; +ATOR40TA70 PO; +BUME2TAB7 PO; +CETI10TA17 PO; +IBUP-2473 PO; +INSU100V39 SC; +MTP25TSR PO; +PREG50CA65 PO; +SPIR25TA5 PO
[2022-09-06 10:52] LABS: BASOPHILS % (AUTO) 0 % (0-10); EOSINOPHILS # (AUTO) 0.2 10^3/uL (0.0-0.3); EOSINOPHILS % (AUTO) 2 % (0-10); HEMATOCRIT 40 % (35-52); HEMOGLOBIN 13.9 g/dL (11.5-16.0); LYMPHOCYTES # (AUTO) 1.6 10^3/uL (1.0-4.0); LYMPHOCYTES % (AUTO) 16 % (12-44); MEAN CORPUSCULAR HEMOGLOBIN 32 pg (25-34); MEAN CORPUSCULAR HGB CONC 35 g/dL (32-36); MEAN CORPUSCULAR VOLUME 92 fL (80-99); MEAN PLATELET VOLUME 9.6 fL (9.0-12.2); MONOCYTES # (AUTO) 0.5 10^3/uL (0.0-1.0); MONOCYTES % (AUTO) 5 % (0-12); NEUTROPHILS # (AUTO) 7.4 10^3/uL (1.8-7.8); NEUTROPHILS % (AUTO) 76 % (42-75); PLATELET COUNT 298 10^3/uL (130-400); WHITE BLOOD COUNT 9.7 10^3/uL (4.3-11.0)
[2022-09-06 11:01] LABS: POTASSIUM 4.4 MMOL/L (3.6-5.0)
[2022-09-06 11:02] LABS: CALCIUM 9.6 MG/DL (8.5-10.1)
[2022-09-06 11:03] LABS: PROTHROMBIN TIME PATIENT 13.7 SEC (12.2-14.7)
[2022-09-06 11:05] LABS: BILIRUBIN,TOTAL 0.6 MG/DL (0.1-1.0)
[2022-09-06 11:07] LABS: CREATININE SERUM 0.81 MG/DL (0.60-1.30)
[2022-09-06 11:07] LABS: BILIRUBIN,URINE NEGATIVE (NEGATIVE); CLARITY,URINE CLEAR; COLOR,URINE YELLOW; GLUCOSE, URINE (UA) 3+ (NEGATIVE); KETONES,URINE NEGATIVE (NEGATIVE); LEUKOCYTE ESTERASE ,URINE NEGATIVE (NEGATIVE); NITRITE,URINE NEGATIVE (NEGATIVE); PROTEIN,URINE NEGATIVE (NEGATIVE)
[2022-09-06 11:10] LABS: MAGNESIUM 1.8 MG/DL (1.6-2.4)
[2022-09-06 11:15] LABS: BACTERIA,URINE NEGATIVE /HPF; SQUAMOUS EPITHELIAL CELL,UR RARE /HPF
--- NOTE | 2022-09-06 11:32 | Diagnostic Imaging Report ---
EXAMINATION: Chest radiograph, portable AP view. DATE: 09/06/2022 11:24 AM INDICATION: 37-year-old female, chest pain and shortness of breath. COMPARISON: July 14, 2021. FINDINGS: Heart size and mediastinal contours are unchanged. There is no identified pneumothorax. There is no large pleural effusion. There is no identified focal airspace consolidation. IMPRESSION: 1. No identified acute cardiopulmonary abnormality. Dictated by: Dictated on workstation # [id number]
--- NOTE | 2022-09-06 12:33 | ED Cardiac General ---
History of Present Illness General Chief Complaint: Chest Pain Stated Complaint: CHF | SOB | CHEST HEAVINESS Nursing Triage Note: HERE VIA AMB WITH MULTIPLE COMPLAINTS - CHEST PAIN, SOA, FILM OVER EYES AND PRESSURE, CLOUDY HEAD, STOMACH ISSUES.. STATES SHE HAS AN APPT AT 11 TO GO TO AND WAS [facility] WHEN CALLED AND SHE TOLD THEM HER SYSMPTOMS AND WAS TOLD TO GO TO THE NEAREST ER. Source: patient, family () Exam Limitations: no limitations History of Present Illness Date Seen by Provider: Sep 06, 2022 Time Seen by Provider: 10:30 Initial Comments Patient is a 37-year-old female with a history of idiopathic cardiomyopathy/congestive failure who presents to the emergency room with a chief complaint of heavy chest discomfort, shortness of breath, feeling like there is a "film" over her eyes and pressure in her head. Her relates that she has been more forgetful over the last 2 months. She has had in termittent diarrhea and constipation alternating over the last couple of months. Patient was scheduled for an appointment at at 11 AM this morning and after she had contacted the clinic where her appointment was they called her and told her to go to the nearest emergency room. Patient also endorses extreme fatigue, pain in her chest is worsened by sitting up and better in a reclined position. She states she also feels terrible when she is laying supine. Her states that she has been having "black stool" for the last 2 months. She feels like her overall urination has decreased to the point that it is "burning". No abnormal vaginal discharge. No significant swelling in her legs. She states when she retains fluid she retains it in her abdomen however after she has diarrheal episodes that swelling goes down. No rashes. No joint pain. No sick contacts at home. They have a 10-year-old child who has been healthy. She has never had upper endoscopy or colonoscopy. She did see a physician at an outlying facility who recommended scopes. She was recently started on an acid panel builder, 40 mg once daily. reports wide variations in blood sugars. She does have an insulin pump. Timing/Duration: other (2 months; worse in 5 days) Severity: moderate Location: central Activities at Onset: none Prior CP/Workup: echocardiography NTG SL [employer]ER [employer]SEM[employer]ER: No ASA po [employer]ER: No Associated Systoms: Chest Pain, Cough (with "phlegm"), Nausea/Vomiting (with "coffee grounds"), Shortness of Air, Weakness (generalized) Allergies and Home Medications Allergies Coded Allergies: gabapentin (Verified Allergy, Unknown, Hives, 02/12/22) morphine (Unverified Adverse Reaction, Mild, NIGHTMARES, 07/16/21) Patient Home Medication List Home Medication List Reviewed: Yes ALPRAZolam (ALPRAZolam) 0.25 Mg Tablet, 0.125 MG PO DAILY PRN for ANXIETY, (Reported) Entered as Reported by: PAULO DOVE on 02/12/221543 Atorvastatin Calcium (Atorvastatin Calcium) 40 Mg Tablet, 40 MG PO 1800, (Reported) Entered as Reported by: PAULO DOVE on 02/12/221543 Bumetanide (Bumetanide) 2 Mg Tablet, 2 MG PO 1800, (Reported) Entered as Reported by: PAULO DOVE on 02/12/221543 Cetirizine HCl (Cetirizine HCl) 10 Mg Tablet, 10 MG PO DAILY PRN for ALLERGY SYMPTOMS, (Reported) Entered as Reported by: PAULO DOVE on 02/12/221543 Ibuprofen (Ibuprofen) 200 Mg Tablet, 600 MG PO Q8H PRN for PAIN-MILD (1-4), (Reported) Entered as Reported by: PAULO DOVE on 02/12/221543 Insulin Lispro (Insulin Lispro) 100 Unit/Ml Vial, UNITS SC UD, (Reported) Entered as Reported by: PAULO DOVE on 02/12/221543 Metoprolol Succinate (Metoprolol Succinate) 25 Mg Tab.er.24h, 12.5 MG PO 1800, (Reported) Entered as Reported by: PAULO DOVE on 02/12/221543 Pregabalin (Pregabalin) 50 Mg Capsule, 50 MG PO TID, (Reported) Entered as Reported by: PAULO DOVE on 02/12/221543 Spironolactone (Spironolactone) 25 Mg Tablet, 25 MG PO 1800, (Reported) Entered as Reported by: PAULO DOVE on 02/12/221543 Review of Systems Review of Systems Constitutional: see HPI EENTM: Other ("film" over eyes) Respiratory: Cough, SOA at Rest Cardiovascular: Chest Pain Gastrointestinal: Constipated, Diarrhea, Nausea, Poor Appetite, Other ("back stool" and "coffee grounds" in secretions) Genitourinary: Burning Musculoskeletal: no symptoms reported Skin: no symptoms reported Psychiatric/Neurological: Headache Endocrine: Intolerance to Cold All Other Systems Reviewed Negative Unless Noted: Yes Past Epxxsgg-Utvboh-Sxxfix Hx Patient Social History Tobacco Use?: Yes Smoking Status: Current Everyday Smoker Substance use?: No Alcohol Use?: No Past Medical History Surgery/Hospitalization HX: TYPE 1 DIABETES, CHF,IMPLANTED INSULIN PUMP Surgeries: Yes Respiratory: No Cardiac: Yes (History of idiopathic heart failure) Neurological: No Reproductive Disorders: No Genitourinary: No Gastrointestinal: No Endocrine: Yes Diabetes, Insulin dep HEENT: No Cancer: No Psychosocial: Yes Anxiety, Depression Integumentary: No Physical Exam Vital Signs Vital Signs - First Documented 09/06/22 10:10 Temp 36.5 Pulse 105 Resp 16 B/P (MAP) 135/84 (101) Pulse Ox 100 O2 Delivery Room Air Capillary Refill : Less Than 3 Seconds Height, Weight, BMI Height: '" Weight: lbs. oz. kg; 23.00 BMI Method:Stated General Appearance: No Apparent Distress, WD/WN HEENT: PERRL/EOMI, Pharynx Normal Neck: Normal Inspection Respiratory: Lungs Clear, Normal Breath Sounds, No Accessory Muscle Use, No Respiratory Distress Cardiovascular: Regular Rate, Rhythm, No Murmur, Normal Peripheral Pulses; No Gallop/S4, No Irregularly Irregular, No JVD Gastrointestinal: Normal Bowel Sounds, Non Tender, Soft Rectal: Normal Exam, Normal Rectal Tone, Heme Negative Stool Extremity: Normal Capillary Refill, Normal Inspection, Normal Range of Motion, Non Tender, No Calf Tenderness, No Pedal Edema Neurologic/Psychiatric: Alert, Oriented x3, No Motor/Sensory Deficits, Normal Mood/Affect Skin: Normal Color, Warm/Dry Progress/Results/Core Measures Results/Orders Lab Results Laboratory Tests Test 09/06/22 10:41 09/06/22 11:00 Range/Units White Blood Count 9.7 4.3-11.0 10^3/uL Red Blood Count 4.37 3.80-5.11 10^6/uL Hemoglobin 13.9 11.5-16.0 g/dL Hematocrit 40 35-52 % Mean Corpuscular Volume 92 80-99 fL Mean Corpuscular Hemoglobin 32 25-34 pg Mean Corpuscular Hemoglobin Concent 35 32-36 g/dL Red Cell Distribution Width 12.0 10.0-14.5 % Platelet Count 298 130-400 10^3/uL Mean Platelet Volume 9.6 9.0-12.2 fL Immature Granulocyte % (Auto) 0 % Neutrophils (%) (Auto) 76 H 42-75 % Lymphocytes (%) (Auto) 16 12-44 % Monocytes (%) (Auto) 5 0-12 % Eosinophils (%) (Auto) 2 0-10 % Basophils (%) (Auto) 0 0-10 % Neutrophils # (Auto) 7.4 1.8-7.8 10^3/uL Lymphocytes # (Auto) 1.6 1.0-4.0 10^3/uL Monocytes # (Auto) 0.5 0.0-1.0 10^3/uL Eosinophils # (Auto) 0.2 0.0-0.3 10^3/uL Basophils # (Auto) 0.0 0.0-0.1 10^3/uL Immature Granulocyte # (Auto) 0.0 0.0-0.1 10^3/uL Prothrombin Time 13.7 12.2-14.7 SEC INR Comment 1.0 0.8-1.4 Activated Partial Thromboplast Time 33 24-35 SEC Sodium Level 136 135-145 MMOL/L Potassium Level 4.4 3.6-5.0 MMOL/L Chloride Level 104 98-107 MMOL/L Carbon Dioxide Level 22 21-32 MMOL/L Anion Gap 10 5-14 MMOL/L Blood Urea Nitrogen 7 7-18 MG/DL Creatinine 0.81 0.60-1.30 MG/DL Estimat Glomerular Filtration Rate 96 BUN/Creatinine Ratio 9 Glucose Level 354 H 70-105 MG/DL Calcium Level 9.6 8.5-10.1 MG/DL Corrected Calcium 9.6 8.5-10.1 MG/DL Magnesium Level 1.8 1.6-2.4 MG/DL Total Bilirubin 0.6 0.1-1.0 MG/DL Aspartate Amino Transf (AST/SGOT) 16 5-34 U/L Alanine Aminotransferase (ALT/SGPT) 13 0-55 U/L Alkaline Phosphatase 72 40-136 U/L Troponin I < 0.028 <0.028 NG/ML B-Type Natriuretic Peptide < 10.0 <100.0 PG/ML Total Protein 7.0 6.4-8.2 GM/DL Albumin 4.0 3.2-4.5 GM/DL Thyroid Stimulating Hormone (TSH) 0.51 0.35-4.94 UIU/ML Urine Color YELLOW Urine Clarity CLEAR Urine pH 7.0 5-9 Urine Specific [place] <=1.005 1.016-1.022 Urine Protein NEGATIVE NEGATIVE Urine Glucose (UA) 3+ H NEGATIVE Urine Ketones NEGATIVE NEGATIVE Urine Nitrite NEGATIVE NEGATIVE Urine Bilirubin NEGATIVE NEGATIVE Urine Urobilinogen 0.2 < = 1.0 MG/DL Urine Leukocyte Esterase NEGATIVE NEGATIVE Urine RBC (Auto) NEGATIVE NEGATIVE Urine RBC NONE /HPF Urine WBC NONE /HPF Urine Squamous Epithelial Cells RARE /HPF Urine Crystals NONE /LPF Urine Bacteria NEGATIVE /HPF Urine Casts NONE /LPF Urine Mucus NEGATIVE /LPF Urine Culture Indicated NO My Orders Orders - RAFAEL ALMONTE MD Cbc With Automated Diff (09/06/22 10:44) Magnesium (09/06/22 10:44) Chest 1 View, Ap/Pa Only (09/06/22 10:44) Comprehensive Metabolic Panel (09/06/22 10:44) Protime With Inr (09/06/22 10:44) Partial Thromboplastin Time (09/06/22 10:44) O2 (09/06/22 10:44) Monitor-Rhythm Ecg Trace Only (09/06/22 10:44) Ed Iv/Invasive Line Start (09/06/22 10:44) Troponin I Kendra (09/06/22 10:44) Bnp Dundy (09/06/22 10:44) Fecal Occult Bedside (09/06/22 10:44) Ua Culture If Indicated (09/06/22 10:44) Ekg Tracing (09/06/22 10:44) Thyroid Stimulating Hormone (09/06/22 11:33) Vital Signs/I&O 09/06/22 09/06/22 10:10 12:43 Temp 36.5 Pulse 105 Resp 16 B/P (MAP) 135/84 (101) 114/78 Pulse Ox 100 O2 Delivery Room Air Blood Pressure Mean: 101 Fecal Occult: Negative Progress Progress Note : Time: 12:20 Progress Note Patient seen and evaluated by me, evaluation today includes physical exam, EKG, chest x-ray, CBC, Chem-12, magnesium, troponin, BNP, TSH, coag profile, urinalysis, fecal occult blood testing. Pertinent physical exam findings, well- developed well-nourished female in no acute distress. Heart is regular, lungs are clear, abdomen is soft and benign with positive bowel sounds. Fecal occult blood test at the bedside is negative. Patient has no lower extremity edema. Skin is pink warm and dry without rashes. Neuro exam is nonfocal. Vital signs are stable. Differential diagnosis based on history and physical exam, mild congestive heart failure exacerbation, DKA, hypothyroidism, occult infection causing labile blood sugars. Labs and imaging independently interpreted by me. Patient CBC is completely normal. Chemistry remarkable only for an elevated glucose at 354. Magnesium within normal limits, troponin undetectable. BNP undetectable. Coags normal. TSH normal at 0.51. Urinalysis dilute without evidence of infection, 3+ glucose noted. Patient's vital signs have been stable. Patient monitored throughout her stay in the ED. She has no clinical or objective findings concerning for congestive heart failure or acute cardiac pathology. She is not in DKA. She is not hypothyroid. No evidence of infection on exam or laboratory evaluation. All of these findings are discussed with the patient and her who is at the bedside. She is immediately irritated and upset. Becomes somewhat verbally aggressive, upset that she does not have any findings to explain her complaints. I attempted for quite a while to reassure the patient that finding no emergent diagnoses was in fact a good thing because she did not need to be admitted to the hospital or undergo any further testing. She was frustrated that she was just being referred to Dr. Unique hernandez with no answers. I advised her that if she was concerned about bleeding from her stool or vomiting blood that follow-up with a general surgeon for endoscopy would be the next appropriate step. She should also follow-up with her doctors at . It is not unusual for patients with appropriate treatment and therapy to improve from their congestive failure. She was asking to "just get my papers and be discharged". Her nurse let me know after I had left the room and her discharge papers were given to her that she was very unhappy with my care and that she would not be coming back to our facility. Initial ECG Impression Date: Sep 06, 2022 Initial ECG Impression Time: 10:30 Initial ECG Rate: 104 Initial ECG Rhythm: Normal Sinus Initial ECG Intervals: Normal Initial ECG Intervals NV 169 QRS [address]Tc [address] segment change.normal intervals; no ectopy Diagnostic Imaging Diagonstic Imaging: Xray Plain Films/CT/US/NM/MRI: chest Comments [facility] [place], [place] NAME: AAMIR GONG [facility] REC#: [id number] PT STATUS: REG ER : 1985 PHYSICIAN: RAFAEL ALMONTE MD ADMIT DATE: 09/06/22/ER Signed Date of Exam:09/06/22 CHEST 1 VIEW, AP/PA ONLY EXAMINATION: Chest radiograph, portable AP view. DATE: 09/06/2022 11:24 AM INDICATION: 37-year-old female, chest pain and shortness of breath. COMPARISON: July 14, 2021. FINDINGS: Heart size and mediastinal contours are unchanged. There is no identified pneumothorax. There is no large pleural effusion. There is no identified focal airspace consolidation. IMPRESSION: 1. No identified acute cardiopulmonary abnormality. Dictated by: Dictated on workstation # [id number] Dict: 09/06/22 1128 Trans: 09/06/22 1148 [facility] [id number] Interpreted by: SHAILESH LOPEZ MD Electronically signed by: SHAILESH LOPEZ MD 09/06/22 1148 Counseling-Symptomatic: 3-10 Minutes Follow-up with PCP to: Discuss Further Options Departure Impression Primary Impression: Chest pain Qualified Codes: R07.9 - Chest pain, unspecified Additional Impressions: Dyspnea Qualified Codes: R06.00 - Dyspnea, unspecified Multiple somatic complaints Disposition: HOME, SELF-CARE Condition: Stable/Unchanged Departure-Patient Inst. Decision time for Depature: 12:35 Referrals: NO,LOCAL PHYSICIAN (PCP/Family) Primary Care Physician Patient Instructions: Chest Pain That Is Not Caused by the Heart (DC) Add. Discharge Instructions: You have been seen and evaluated in the emergency department this afternoon, no emergent cause for your symptoms has been discovered. Please continue your daily medications as prescribed. Follow-up with your primary care provider and specialists as scheduled. If you would like to be evaluated for a "scope" to look for causes of your chest pain such as stomach ulcer or bleeding from the lower intestine please contact Dr. OSPINA's office on Friday for a follow-up appointment. If you develop any worsening symptoms, bright red blood in your stool, increased pain or any other emergent, concerning symptoms, please return to the emergency department for reevaluation. Work/School Note: Work Release Form Date Seen in the Emergency Department: Sep 06, 2022 Return to Work: September 09, 2022 RAFAEL ALMONTE MD Sep 06, 2022 12:33
[2022-09-06 12:43] VITALS: BP 114/78
== END 2022-09-06 12:44 | disposition home or self-care (01) ==
LOC: EDUNIT# 10:08 → ER 10:12
DX: R07.89 Other chest pain (principal); R06.00 Dyspnea, unspecified; F45.9 Somatoform disorder, unspecified; E10.9 Type 1 diabetes mellitus without complications; F17.200 Nicotine dependence, unspecified, uncomplicated
CPT/HCPCS: 36415; 71045; 80053; 81000; 82274; 83735; 83880; 84443; 84484; 85025; 85610; 85730; 93005; 93041